=== PATIENT | male | born 1990 | race Caucasian/White ===

== ENCOUNTER 2024-10-22 12:44 | Emergency (ER) | payer MEDICAID ==
[~2024-10-22] VITALS: Ht 172.7 cm; Wt 99.8 kg
[2024-10-22 12:45] VITALS: BP 115/82
[2024-10-22 14:39] LABS: PLATELET COUNT (AUTO) 324 K/uL (152-348); RED BLOOD CELL COUNT(AUTO) 5.19 MIL/uL (4.06-5.63); RED CELL DISTRIBUTION WIDTH 13.5 % (12.1-16.2); WHITE BLOOD COUNT (AUTO) 5.2 K/uL (3.6-10.2)
[2024-10-22] MEDS ORDERED: KETOROLAC TROMETHAMINE 15 MG INJ ONE (14:44)
[2024-10-22] MEDS: KETOROLAC TROMETHAMINE 15 MG INJ IVP ONE (14:47)
[2024-10-22 14:54] LABS: CREATININE 1.1 mg/dL (0.6-1.3); SODIUM SERUM 142 mmol/L (136-145); UREA NITROGEN, BLOOD 13 mg/dL (7-18)
[2024-10-22 14:59] LABS: ASPARTATE AMINOTRANSFERASE 14 U/L (15-37); TOTAL PROTEIN, SERUM 8.0 g/dL (6.4-8.2)
[2024-10-22 15:43] VITALS: BP 115/82; TEMP 97.9; O2SAT 98
== END 2024-10-22 15:05 | disposition home or self-care (01) ==
LOC: ER 12:44
DX: K80.70 Calculus of gallbladder and bile duct without cholecystitis without obstruction (principal); F32.A Depression, unspecified
CPT/HCPCS: 83690; 84484; 85025; A4606; A4663; J1885